=== PATIENT | female | born 1970 | race Caucasian/White ===

== ENCOUNTER 2016-06-14 09:30 | Emergency (ER) | payer SELFPAY ==
[~2016-06-14] VITALS: Ht 152.4 cm; Wt 70.0 kg
[~2016-06-14 09:30] MED LIST: BENZ1CAP34 PO; DUONI INH; EFFE150C PO; SUDA30TA PO; TAB-TAB PO; ZEGE20CA PO; ZITH250T PO
[2016-06-14 09:32] VITALS: BP 119/74; PULSE 82; RESP 16; TEMP 97.5; O2SAT 99
== END 2016-06-14 10:06 | disposition left against medical advice (07) ==
LOC: NED 09:30
DX: R68.89 Other general symptoms and signs (principal)
CPT/HCPCS: 99281